=== PATIENT | female | born 1955 | race Caucasian/White ===

== ENCOUNTER 2020-12-15 08:26 | Outpatient (CLI) | payer MEDICARE, SELFPAY ==
--- NOTE | ~2020-12-15 | MM_ITS ---
EXAMINATION: MM screening [facility] BI w j luis HISTORY: Screening mammogram, family history of breast cancer in her sister. TECHNIQUE: Craniocaudal and mediolateral oblique 3-D tomosynthesis images were obtained and synthetic 2-D images were generated. CAD analysis was submitted and interpreted. COMPARISON: 07/25/2019, 09/23/2017, 07/30/2015 BREAST PARENCHYMAL COMPOSITION: There are scattered areas of fibroglandular density. FINDINGS: There is a waxing and waning sebaceous cyst in the upper outer quadrant of the right breast . There is no evidence of suspicious mass, calcification, or architectural distortion to suggest micki gnancy in either breast. There has been no suspicious interval change. IMPRESSION: 1. No mammographic evidence of malignancy. 2. Recommend routine screening mammography in one year. BI-RADS Category 2: Benign finding(s). Reviewed, dictated and finalized at location A. USION PRESS OPERATOR
--- NOTE | ~2020-12-15 | DEXA_ITS ---
Bone Density Report Name: Estella Glover Age: 65 Sex: Female Ethnicity: White Date of : 1955 Indication: postmenopausal; Referring Provider: Azar Briggs Study: Bone densitometry was performed. Exam Date: December 15, 2020 Accession number: [id number] Bone Density: Region BMD T-score Z-score Classification AP Spine (L1-L4) 1.099 0.5 2.2 Normal Femoral Neck (Left) 0.677 -1.5 0.0 Osteopenia Total Hip (Left) 0.839 -0.8 0.4 Normal Total Hip Bilateral Avg 0.850 -0.8 0.5 Normal Femoral Neck (Right) 0.699 -1.4 0.2 Osteopenia Total Hip (Right) 0.859 -0.7 0.6 Normal World Health Organization criteria for BMD impression classify patients as: Normal (T-score at or above -1.0), Osteopenia (T-score between -1.0 and -2.5), or Osteoporosis (T-score at or below -2.5). 10-year Fracture Risk(1): Major Osteoporotic Fracture 8.7% Hip Fracture 0.9% Reported Risk Factors: [place] (), Neck BMD=0.677, BMI=29.3 (1) FRAX(R) Version 3.08. Fracture probability calculated for an untreated patient. Fracture probability may be lower if the patient has received treatment. Clinical Information Provided by Patient: Has used the following medications: Vitamin D, Calcium Menopause Age: 44 Drinks caffeinated beverages Onset of menses at age 12 Number of children 2 Impression: The patient has low bone mass, based on the Left Femoral Neck T-score. The patient has an estimated ten-year risk of hip fracture of 0.9% and an estimated ten-year risk of major fracture of 8.7%, based on the WHO FRAX algorithm. Discussion: BONE DENSITY IS LOW AT ONE OR MORE SKELETAL SITES. This patient's lowest T-score is low at one or more skeletal sites. It meets the World Health Organization's (WHO) criteria for ?low bone mass? (T-score between -1.0 and -2.5). The patient's 10-year risk of fracture as calculated by FRAX is less than the threshold where pharmacological therapy is recommended by the National Osteoporosis Foundation (NOF). However, all treatment decisions require clinical judgment and consideration of individual patient factors, including patient preferences, comorbidities, previous drug use, risk factors not captured in the FRAX model (e.g., frailty, falls, vitamin D deficiency, increased bone turnover, interval significant decline in bone density) and possible under or overestimation of fracture risk by FRAX. The patient should follow a healthful lifestyle (good nutrition with adequate calcium and vitamin D, and appropriate weight-bearing exercise). Follow-Up: Consider repeating this study in 2 to 3 years to reassess this patient's status, or sooner if there is some new clinical indication. Reported by: [facility] on 12/15/2020 8:50:00 AM. Reviewed, dictated and finalized a
== END 2020-12-15 08:27 | disposition home or self-care (01) ==
LOC: ANHIMG 08:29
PROVIDERS: PCP Physician Assistant; Visit Provider Physician Assistant
DX: Z12.31 Encounter for screening mammogram for malignant neoplasm of breast (principal); Z78.0 Asymptomatic menopausal state; M85.89 Other specified disorders of bone density and structure, multiple sites
CPT/HCPCS: 77063; 77067; 77080

== ENCOUNTER 2022-03-24 12:24 | Outpatient (CLI) | payer MEDICARE, SELFPAY ==
--- NOTE | ~2022-03-24 | MM_ITS ---
EXAMINATION: MM screening [facility] BI w j luis HISTORY: Screening mammogram TECHNIQUE: Craniocaudal and mediolateral oblique 3-D tomosynthesis images were obtained and synthetic 2-D images were generated. CAD analysis was submitted and interpreted. COMPARISON: No prior mammogram is available for comparison at this institution. BREAST PARENCHYMAL COMPOSITION: There are scattered areas of fibroglandular density. FINDINGS: Scattered bilateral benign calcifications. There is no evidence of suspicious mass, calcifi cation, or architectural distortion to suggest malignancy in either breast. There has been no suspici ous interval change. IMPRESSION: 1. No mammographic evidence of malignancy. 2. Recommend routine screening mammography in one year. BI-RADS Category 2: Benign finding(s). Reviewed, dictated and finalized at location A.
== END 2022-03-24 12:25 | disposition home or self-care (01) ==
PROVIDERS: PCP Family Medicine; Visit Provider Family Medicine
DX: Z12.31 Encounter for screening mammogram for malignant neoplasm of breast (principal)
CPT/HCPCS: 77063; 77067

== ENCOUNTER 2023-05-31 09:46 | Outpatient (CLI) | payer MEDICARE, SELFPAY ==
--- NOTE | ~2023-05-31 | MM_ITS ---
EXAMINATION: MM screening [facility] BI w j luis HISTORY: Screening mammogram, family history of breast cancer in her sister. TECHNIQUE: Craniocaudal and mediolateral oblique 3-D tomosynthesis images were obtained and synthetic 2-D images were generated. CAD analysis was submitted and interpreted. COMPARISON: 03/24/2022, 12/15/2020, 07/25/2019 BREAST PARENCHYMAL COMPOSITION: There are scattered areas of fibroglandular density. FINDINGS: No suspicious mass, calcification, or architectural distortion are identified in either flaquita ast to suggest malignancy. There has been no suspicious interval change. IMPRESSION: 1. No mammographic evidence of malignancy. 2. Recommend routine screening mammography in one year. BI-RADS Category 1: Negative Reviewed, dictated and finalized at location A.
== END 2023-05-31 09:47 | disposition home or self-care (01) ==
PROVIDERS: PCP Family Medicine; Visit Provider Family Medicine
DX: Z12.31 Encounter for screening mammogram for malignant neoplasm of breast (principal)
CPT/HCPCS: 77063; 77067

== ENCOUNTER 2023-07-27 19:16 | Emergency (ER) | payer MEDICARE, SELFPAY ==
--- NOTE | ~2023-07-27 | CT_ITS ---
CT of the Abdomen and Pelvis: Indication: Abdominal pain Technique: 2.5 mm axial scans were obtained through the abdomen and pelvis following intravenous adm inistration of 100 cc of Omnipaque 350. Dose reduction technique was used on this scan by utilizing a utomated exposure control and iterative reconstruction technique. The dose-length product (DLP) was 6 58.08 mGy-cm. COMPARISON: 09/29/2015 Findings: Scans through the lung bases demonstrate 6 mm right middle lobe pulmonary nodule (axial im age 28), similar to prior exam. Minimal prominence of the central intrahepatic biliary tree is likely related to prior cholecystectom y. The spleen, pancreas, adrenals and kidneys are within normal limits. There are atherosclerotic leilnai cifications of the aorta. No lymphadenopathy. No bowel obstruction or bowel wall thickening. There is no evidence to suggest acute appendicitis. Images through the pelvis were performed. Urinary bladder unremarkable. No adnexal mass seen. No asci ammon. Impression: No definite acute abnormality seen. Minimal intrahepatic biliary dilatation is likely related to prior cholecystectomy. 6 mm right middle lobe pulmonary nodule, similar to prior exam. Relative stability since 2014 is sriram cative of benignity. Reviewed, dictated and finalized at [facility]. Impression: No definite acute abnormality seen. Minimal intrahepatic biliary dilatation is likely related to prior cholecystect zachariah. 6 mm right middle lobe pulmonary nodule, similar to prior exam. Relative stabil ity since 2014 is indicative of benignity.
[2023-07-27 19:18] VITALS: BP 176/112; PULSE 83; RESP 19; TEMP 36.8; O2SAT 97
[2023-07-27 19:48] LABS: Appearance Urine Clear (Clear); Bacteria Urine None Seen /hpf; Bilirubin Urine Negative (Negative); Blood Urine Trace (Negative); Color Urine Yellow (Yellow); Glucose Urine UA Negative (Negative); Ketones Urine Negative (Negative); Leukocyte Esterase Ur 1+ LEU/UL (Negative); Nitrate Urine Negative (Negative); Non Pathogenic Casts 0-2; Protein Urine Negative (Negative); RBC Urine 0-2 /hpf (0-2); Specific Grav Ur 1.009 (1.001-1.035); Squamous Epithelial Cell Urine None seen /hpf (Few); Urobilinogen Urine 0.2 mg/dL (<2.0)
[2023-07-27 19:48] LABS: Alanine Aminotransferase 22 U/L (6-35); Albumin Level 4.6 g/dL (3.5-5.1); Alkaline Phosphatase 58 U/L (38-126); Anion Gap 13 mmol/L (8-16); Aspartate Amino Transferase 26 U/L (14-36); Bilirubin,Total 0.6 mg/dL (0.2-1.3); Blood Urea Nitrogen 14 mg/dL (7-17); Calcium 9.3 mg/dL (8.4-10.2); Carbon Dioxide 24 mmol/L (22-30); Chloride 100 mmol/L (98-107); Estimated CRCL calculation 73 ml/min; Estimated Glomerular Filt Rate > 60; Glucose 105 mg/dL (65-110); Lipase 103 U/L (23-300); Potassium 3.7 mmol/L (3.4-5.0); Sodium 137 mmol/L (137-145)
[2023-07-27 19:50] LABS: Add Urine Microscopic? YES
[2023-07-27 20:26] LABS: Basophils Percent Auto 0.4 % (0.2-1.2); Eosinophils Absolute Auto 0.1 K/mm3 (0-0.3); Eosinophils Percent Auto 1.3 % (0-4.4); Hematocrit 44.7 % (37.0-47.0); Immature Granulocyte Absolute 0.02 K/mm3 (0.00-0.031); Immature Granulocyte Percent A 0.2 % (0-0.5); Lymphocytes Absolute Auto 2.54 K/mm3 (0.9-3.2); Mean Corpuscular HGB Conc 33.6 g/dl (32-36); Mean Corpuscular Hemoglobin 30.6 pg (26-34); Mean Corpuscular Volume 91.2 fl (80-100); Monocytes Absolute Auto 0.6 K/mm3 (0.1-0.6); Neutrophils Absolute Auto 6.5 K/mm3 (1.3-6.7); Neutrophils Percent Auto 66.1 % (45.5-73.1); Platelet Count Result 216 k/mm3 (150-375); Red Cell Distribution Width 12.8 % (11.5-14.5); White Blood Count 9.8 K/mm3 (4.5-10.0)
[2023-07-28] MEDS: HYDROmorphone HCL INJ (*CRX) 1 MG/ML SYR 0.5 MG IV PUSH (01:23)
[2023-07-28] MEDS: SODIUM CHLORIDE 0.9% IV 1,000 ML 999 ML IV CONT (01:23)
[2023-07-28 01:32] VITALS: BP 162/100; PULSE 71; RESP 16; O2SAT 99
--- NOTE | 2023-07-28 03:22 | ED.GENADULT ---
HPI - General Adult General Chief complaint: Abdominal Pain Stated complaint: L sided pain, bloating Time Seen by Provider: 07/28/23 00:35 History of Present Illness HPI narrative: this is a 67-year-old female presenting ED with chief complaint of abdominal pain. Patient noticed that she had some ice per Deyanira had [employer] on Tuesday. After that she started developed some bloating, left-sided abdominal pain and diarrhea. This is achy pain on the left side of her abdomen, 9 out 10 intensity and constant. She has never had pain like this before there are no exacerbating or alleviating symptoms. There is no nausea or vomiting. no fevers chills urinary symptoms. No history of kidney stones. She has not taken anything for pain. Related Data Allergies Allergy/AdvReac Type Severity Reaction Status Date / Time morphine Allergy Unknown Unknown Verified 02/24/23 09:42 [facility] Past Medical History Medical History Hyperlipidemia Hypertension Type 2 diabetes mellitus Surgical History Surgical History History of appendectomy History of cholecystectomy History of tonsillectomy History of tubal ligation Family History Family History Other Family history of malignant neoplasm of breast Family history of primary malignant neoplasm of liver Social History Social History Smoking status: Former smoker (quit 10 years ago. smoked for 30 years 0.5 ppd. 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 pleasant polite Head: atraumatic. EYES: EOMI, NOSE: Atraumatic NECK: Trachea midline RESPIRATORY: No increased rate of breathing CTAB CARDIOVASCULAR: RRR, ABDOMINAL: Abdomen is mildly distended but soft nontender with no guarding or rebound. No CVA tenderness. MUSCULOSKELETAl: No obvious deformities NEURO: Alert. Moving 4/4 extremities SKIN:: Warm, dry. Normal color PSYCHIATRIC: Normal affect Course Vital Signs Vital signs: Vital Signs Temperature 98.2 F 07/27/23 19:18 Pulse Rate 83 07/27/23 19:18 Respiratory Rate 19 07/27/23 19:18 Blood Pressure 176/112 H 07/27/23 19:18 Pulse Oximetry 97 07/27/23 19:18 Oxygen Delivery Room Air 07/27/23 19:18 Temperature 98.2 F 07/27/23 19:18 Pulse Rate 90 07/28/23 04:51 Respiratory Rate 19 07/28/23 04:51 Blood Pressure 163/91 H 07/28/23 04:51 Pulse Oximetry 99 07/28/23 04:51 Oxygen Delivery Room Air 07/27/23 19:18 Medical Decision Making MDM Narrative Medical decision making narrative: -Course: [age]-year-old female presenting with abdominal discomfort and diarrhea for several days. Laboratory studies were unremarkable. CT abdomen pelvis did not show any definitive cause of her symptoms. She improved with pain medication. On re-evaluation patient is resting comfortably and walking around the emergency department. Patient will be discharged with pain medication and return precautions. -DDX includes but is not limited to: Gastroenteritis, food poisoning, diverticulitis, kidney stone, small-bowel obstruction, viral syndrome, MSK pain -Co-morbidities complicating care: hypertension diabetes -Independent interpretation of studies: laboratory studies within normal limits. Urine had 6-10 white blood cells and +1 leuk esterase but the patient does not have urinary symptoms. CT abdo
[2023-07-28] MEDS: KETOROLAC 15 MG/ML VIAL (*BKC) IV PUSH (04:06)
[2023-07-28 04:51] VITALS: BP 163/91; PULSE 90; RESP 19; O2SAT 99
[2023-07-28 06:19] VITALS: BP 165/85; PULSE 86; RESP 15; O2SAT 96
== END 2023-07-28 06:22 | disposition home or self-care (01) ==
PROVIDERS: Emergency Provider Emergency Medicine; PCP Family Medicine
DX: R10.9 Unspecified abdominal pain (principal); I10 Essential (primary) hypertension; E78.5 Hyperlipidemia, unspecified; E11.9 Type 2 diabetes mellitus without complications; Z87.891 Personal history of nicotine dependence; Z90.49 Acquired absence of other specified parts of digestive tract; Z79.84 Long term (current) use of oral hypoglycemic drugs
CPT/HCPCS: 36415; 74177; 80053; 81001; 83690; 85025; 87086; 87088; 96361; 96374; 96375; 99284; J1170; J1885; J7030; Q9967

== ENCOUNTER 2023-07-31 07:22 | Emergency (ER) | payer MEDICARE, SELFPAY ==
[2023-07-31] VITALS (9 sets, daily range): BP systolic 140–218; BP diastolic 89–107; PULSE 85–98; RESP 14–22; TEMP 36.7; O2SAT 94–100
--- NOTE | ~2023-07-31 | CT_ITS ---
EXAMINATION: CT abdomen pelvis w con DATE: 07/31/2023 08:52 INDICATION: Left-sided abdominal pain radiating to back. No bowel movement for 4 days. TECHNIQUE: Computed tomography (CT) of the abdomen and pelvis was performed with 100 CC Omnipaque 350 intravenous contrast. Automated exposure control and iterative reconstruction technique were employe d. Exam dose: 503.03 mGy-cm total exam DLP. COMPARISON: 07/28/2023 CT abdomen pelvis FINDINGS: Middle lobe calcified pulmonary granuloma. The lung bases are clear of infiltrate or consol idation. Normal heart size. No pericardial or pleural effusion. Very small sliding hiatal hernia. Several very small hepatic cysts are suggested. Mild bile duct prominence, likely secondary to cholec ystectomy. Normal splenic size with occasional calcified granulomas. No pancreatic mass lesion or calcification or pancreatic duct dilatation. Normal morphology of the adrenal glands. There are few renal cysts, largest situated at the upper pole left kidney, measures up to 7.5 mm. Nonspecific mild prominence of the left renal collecting structures and symmetric mild prominence of the renal pelves. No ureteral calculus or urinary tract obstruction. The urinary bladder, uterus and adnexal areas are unremarkable. There is atherosclerotic calcification but normal caliber of the abdominal aorta. No intraperitoneal or retroperitoneal or pelvic mass lesion or adenopathy or ascites. There is diverticulosis of left and right colon, most extensive on the left; no CT evidence of divert iculitis. No bowel obstruction, bowel wall thickening, pneumatosis or intraperitoneal free air is det ected. Included skeletal structures are unremarkable. IMPRESSION: Very small sliding hiatal hernia Several very small hepatic cysts and occasional small renal cysts Diverticulosis of left and right colon; no evidence of diverticulitis Reviewed, dictated and finalized at Location [facility]. Reviewed, dictated and finalized at location A.
--- NOTE | 2023-07-31 07:31 | ED.ABDPAIN ---
HPI - Abdominal Pain General Chief Complaint: Abdominal Pain Stated Complaint: abd pain Time Seen by Provider: 07/31/23 07:31 Source: patient Mode of arrival: ambulatory Limitations: no limitations History of Present Illness HPI narrative: 67 years old white female drove herself to the emergency room because of pain left abdomen and left flank area started 6 days ago, got worse 4 days ago, came to the emergency room at that time with and was diagnosed of abdominal pain of unknown etiology. Patient noticed having a rash at the left abdomen yesterday. She denies any fever, chills, nausea, vomiting, denies aggravating or relieving factors. Related Data Allergies Allergy/AdvReac Type Severity Reaction Status Date / Time morphine Allergy Unknown Unknown Verified 02/24/23 09:42 Review of Systems Review of Systems: All systems reviewed & are unremarkable except as noted in HPI and below PMFSH Past Medical History Medical History Hyperlipidemia Hypertension Type 2 diabetes mellitus Surgical History Surgical History History of appendectomy History of cholecystectomy History of tonsillectomy History of tubal ligation Family History Family History Other Family history of malignant neoplasm of breast Family history of primary malignant neoplasm of liver Social History Social History Smoking status: Former smoker (quit 10 years ago. smoked for 30 years 0.5 ppd. 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 Consistent with shingles Head: Normocephalic, nontraumatic Eyes: Clear conjunctiva ENT: Oropharynx normal, ears normal, nose normal Neck: Supple, nontender Chest and respiratory: Airway patent, no respiratory distress, no accessory muscle use Heart: Regular rate/rhythm Abdomen: Soft, nontender, no organomegaly, quiet bowel sounds Vascular: Normal peripheral pulses, normal capillary refill. Musculoskeletal: Normal range of motion, nontender back Neurologic: Alert and oriented ?3, FOOD SERVICE SPECIALIST is normal as tested, no gross motor deficit Course Reevaluation(s) Reevaluation #1: Patient still in pain. Date: 07/31/23 Time: 11:07 Vital Signs Vital signs: Vital Signs Temperature 36.7 C 07/31/23 07:27 Pulse Rate 98 07/31/23 07:27 Respiratory Rate 20 07/31/23 07:27 Blood Pressure 218/107 H 07/31/23 07:27 Pulse Oximetry 94 07/31/23 07:27 Temperature 36.7 C 07/31/23 07:27 Pulse Rate 91 07/31/23 08:04 Respiratory Rate 18 07/31/23 08:04 Blood Pressure 140/100 H 07/31/23 08:04 Pulse Oximetry 99 07/31/23 08:04 MDM - Abdominal Pain MDM Narrative Medical decision making narrative: Patient presents with pain at the left flank and left abdomen 6 days ago, ED work-up 4 days ago did not show any significant abnormality, patient is back because the pain is getting worse and new rash on the front of her abdomen noticed yesterday. Physical examination consistent with diffuse p
[2023-07-31 08:04] LABS: Basophils Absolute Auto 0.1 K/mm3 (0.0-0.1); Basophils Percent Auto 0.5 % (0.2-1.2); Eosinophils Absolute Auto 0.1 K/mm3 (0-0.3); Eosinophils Percent Auto 1.2 % (0-4.4); Hematocrit 47.7 % (37.0-47.0); Hemoglobin 16.4 g/dL (12.0-15.0); Immature Granulocyte Absolute 0.02 K/mm3 (0.00-0.031); Immature Granulocyte Percent A 0.2 % (0-0.5); Lymphocytes Absolute Auto 2.72 K/mm3 (0.9-3.2); Lymphocytes Percent Auto 26.6 % (18.3-44.2); Mean Corpuscular HGB Conc 34.4 g/dl (32-36); Mean Corpuscular Hemoglobin 30.1 pg (26-34); Mean Corpuscular Volume 87.7 fl (80-100); Mean Platelet Volume 9.4 fl (7.4-10.4); Monocytes Absolute Auto 0.7 K/mm3 (0.1-0.6); Monocytes Percent Auto 7.1 % (2.6-8.5); Neutrophils Absolute Auto 6.6 K/mm3 (1.3-6.7); Neutrophils Percent Auto 64.4 % (45.5-73.1); Platelet Count Result 224 k/mm3 (150-375); Red Blood Count 5.44 M/mm3 (4.2-5.4); Red Cell Distribution Width 12.6 % (11.5-14.5); White Blood Count 10.2 K/mm3 (4.5-10.0)
[2023-07-31] MEDS: SODIUM CHLORIDE 0.9% IV 1,000 ML 999 ML IV CONT (08:06)
[2023-07-31 08:14] LABS: Appearance Urine Clear (Clear); Bilirubin Urine 1+ (Negative); Blood Urine Trace-intact (Negative); Color Urine Yellow (Yellow); Glucose Urine UA Negative (Negative); Ketones Urine Trace mg/dL (Negative); Leukocyte Esterase Ur Trace LEU/UL (Negative); Nitrate Urine Negative (Negative); Protein Urine 2+ mg/dL (Negative); Specific Grav Ur 1.025 (1.001-1.035); Urobilinogen Urine 0.2 mg/dL (<2.0); pH Urine 5.5 (5.0-9.0)
[2023-07-31 08:16] LABS: Bacteria Urine None Seen /hpf; Non Pathogenic Casts 0-2; Squamous Epithelial Cell Urine Occasional /hpf (Few)
[2023-07-31 08:19] LABS: Add Urine Microscopic? YES
[2023-07-31 08:28] LABS: Alanine Aminotransferase 19 U/L (6-35); Albumin Level 4.9 g/dL (3.5-5.1); Alkaline Phosphatase 86 U/L (38-126); Anion Gap 13 mmol/L (8-16); Aspartate Amino Transferase 23 U/L (14-36); Blood Urea Nitrogen 11 mg/dL (7-17); Calcium 9.3 mg/dL (8.4-10.2); Carbon Dioxide 24 mmol/L (22-30); Chloride 101 mmol/L (98-107); Estimated CRCL calculation 61 ml/min; Estimated Glomerular Filt Rate > 60; Glucose 134 mg/dL (65-110); Lipase 79 U/L (23-300); Potassium 3.3 mmol/L (3.4-5.0); Sodium 138 mmol/L (137-145)
[2023-07-31] MEDS: IBUPROFEN 600 MG TABLET PO (11:16)
[2023-07-31] MEDS: POTASSIUM CHLORIDE 20 MEQ ER TABLET 40 MEQ PO (11:16)
== END 2023-07-31 11:26 | disposition home or self-care (01) ==
PROVIDERS: Emergency Provider Emergency Medicine; PCP Family Medicine
DX: B02.9 Zoster without complications (principal); E78.5 Hyperlipidemia, unspecified; I10 Essential (primary) hypertension; E11.9 Type 2 diabetes mellitus without complications; Z87.891 Personal history of nicotine dependence; Z90.49 Acquired absence of other specified parts of digestive tract; K44.9 Diaphragmatic hernia without obstruction or gangrene; K76.89 Other specified diseases of liver; N28.1 Cyst of kidney, acquired; K57.90 Diverticulosis of intestine, part unspecified, without perforation or abscess without bleeding; Z79.84 Long term (current) use of oral hypoglycemic drugs
CPT/HCPCS: 36415; 74177; 80053; 81001; 83690; 85025; 87086; 87088; 96360; 99284; A9270; J7030; Q9967

== ENCOUNTER 2024-07-05 10:15 | Outpatient (CLI) | payer MEDICARE, SELFPAY ==
--- NOTE | ~2024-07-05 | MM_ITS ---
EXAMINATION: MM screening [facility] BI w j luis HISTORY: Screening mammogram, family history of breast cancer in her sister. TECHNIQUE: Craniocaudal and mediolateral oblique 3-D tomosynthesis images were obtained and synthetic 2-D images were generated. CAD analysis was submitted and interpreted. COMPARISON: 05/31/2023, 04/12/2022, 07/25/2019 BREAST PARENCHYMAL COMPOSITION:Not Dense. There are scattered areas of fibroglandular density. FINDINGS: No suspicious mass, calcification, or architectural distortion are identified in either flaquita ast to suggest malignancy. There has been no suspicious interval change. IMPRESSION: No mammographic evidence of malignancy. Recommend routine screening mammography in one year. BI-RADS Category 1: Negative Reviewed, dictated and finalized at location .
== END 2024-07-05 10:16 | disposition home or self-care (01) ==
LOC: ANHIMG 10:16
PROVIDERS: PCP Family Medicine; Visit Provider Family Medicine
DX: Z12.31 Encounter for screening mammogram for malignant neoplasm of breast (principal)
CPT/HCPCS: 77063; 77067

== ENCOUNTER 2025-08-06 14:56 | Outpatient (CLI) | payer MEDICARE, SELFPAY ==
--- NOTE | ~2025-08-06 | MM_ITS ---
EXAMINATION: MM screening [facility] BI w j luis HISTORY: Screening TECHNIQUE: Craniocaudal and mediolateral oblique 3-D tomosynthesis images were obtained and synthetic 2-D images were generated. CAD analysis was submitted and interpreted. COMPARISON: 03/24/2022 BREAST PARENCHYMAL COMPOSITION: There are scattered areas of fibroglandular density. FINDINGS: There is no evidence of suspicious mass, calcification, or architectural distortion to suggest malignancy. There has been no suspicious interval change. IMPRESSION: 1. No mammographic evidence of malignancy. Recommend routine screening mammography in one year. BI-RADS Category 2: Benign finding(s) Reviewed, dictated and finalized at location Q. IMPRESSION: 1. No mammographic evidence of malignancy. Recommend routine screening mammogra phy in one year. BI-RADS Category 2: Benign finding(s)
== END 2025-08-06 14:57 | disposition home or self-care (01) ==
LOC: ANHFOHIMG 14:58
PROVIDERS: PCP Family Medicine; Visit Provider Family Medicine
DX: Z12.31 Encounter for screening mammogram for malignant neoplasm of breast (principal)
CPT/HCPCS: 77063; 77067